=== PATIENT | male | born 1945 | race Caucasian/White ===

== ENCOUNTER 2019-02-18 12:19 | Day surgery (SDC) ==
--- NOTE | 2019-02-15 14:57 | EKG Report ---
Test Performed on : 02/15/2019 2:44:17 PM Test Reason : PAT Blood Pressure : / mmHG Vent. Rate : 072 BPM Atrial Rate : 072 BPM P-R Int : 180 ms QRS Dur : 072 ms QT Int : 388 ms P-R-T Axes : 044 026 061 degrees QTc Int : 424 ms Normal sinus rhythm. Normal ECG No previous ECGs available Confirmed by Robin WINTER, Jim ([id number]) on 02/15/2019 3:55:35 PM
[2019-02-15 15:08] LABS: BASO# 0.03 X1000 (0.0-0.2); BASO% 0.3 % (0.0-0.8); EOS# 0.11 X1000 (0.0-0.7); EOS% 1.1 % (0.0-10.0); HEMATOCRIT 40.1 % (42.0-52.0); LYMPH# 1.48 X1000 (1.2-3.4); LYMPH% 14.8 % (20.5-51.1); MCH 30.5 PG (27-31); MCHC 32.4 g/dL (33-37); MCV 94.1 FL (81-99); MONO# 1.31 X1000 (0.11-0.59); MONO% 13.1 % (1.7-9.3); MPV 9.4 FL (7.4-10.4); NEUT# 6.99 X1000 (1.4-6.5); NEUT% 69.7 % (42.2-75.2); PLT 202 X1000 (130-400); RBC 4.26 XMIL (4.7-6.1); RDW 13.7 % (11.5-14.5); WBC 10.02 X1000 (4.8-10.8)
[2019-02-15 15:33] LABS: CALCIUM 8.7 mg/dL (8.8-10.2); CREATININE 1.7 mg/dL (0.7-1.2); POTASSIUM 5.6 mmol/L (3.5-5.1)
[2019-02-18] MEDS ORDERED: LR 1,000 ML ONE (13:09)
[2019-02-18] MEDS ORDERED: KEFZOL 1 GM/D5W 2 GM/100 ML IVPB ONE (13:09)
[2019-02-18] MEDS ORDERED: XYLOCAINE-MPF 2% ONE (13:26)
[2019-02-18] MEDS ORDERED: DIPRIVAN 1% ONE (13:26)
[2019-02-18] MEDS ORDERED: SUFENTA ONE (13:28)
[2019-02-18] MEDS ORDERED: NORCO-7.5 PO ONE (13:42)
[2019-02-18] MEDS ORDERED: NORCO-7.5 ONE (13:53)
[2019-02-18] MEDS ORDERED: PEPCID ONE (14:10)
[2019-02-18] MEDS ORDERED: REGLAN ONE (14:10)
[2019-02-18] MEDS ORDERED: NORCURON ONE (17:21)
[2019-02-18] MEDS ORDERED: STERILE WATER INJ. ONE (17:21)
[2019-02-18] MEDS ORDERED: HUMULIN R ONE (18:14)
[2019-02-18] MEDS ORDERED: D50W SYRINGE ONE (18:14)
[2019-02-18] MEDS ORDERED: NEOSTIGMINE ONE (18:52)
[2019-02-18] MEDS ORDERED: ZOFRAN ONE (18:52)
[2019-02-18] MEDS ORDERED: ROBINUL ONE (18:52)
[2019-02-18] MEDS ORDERED: DECADRON ONE (18:52)
[2019-02-18] MEDS ORDERED: MORPHINE IV PRN (19:01)
[2019-02-18] MEDS: MORPHINE ONE ×2 (19:21→19:27)
[2019-02-18] MEDS: DILAUDID ONE ×2 (19:41→19:44)
--- NOTE | 2019-02-18 20:08 | OPERATIVE NOTE ---
PROCEDURE DATE: 02/18/2019 PREOPERATIVE DIAGNOSIS: Right intraarticular and subluxated/dislocated calcaneus fracture. POSTOPERATIVE DIAGNOSIS: Right intraarticular and subluxated/dislocated calcaneus fracture. PROCEDURES: 1. Right open reduction and internal fixation of calcaneus. 2. Twenty-two modifier for difficult procedure. SURGEON: Richmond Unger MD BLEACH SUPERVISOR: Brittney Muse, nurse practitioner, who was an integral part of the case, helping with all aspects of the case helping to increase our OR efficiency greatly. ANESTHESIA: General with LMA. TOURNIQUET TIME: Less than 2 hours. IMPLANTS: Scotty [employer] fully threaded 6.5 screws and 4.0 cannulated screws. DISPOSITION: To PACU, hemodynamically stable. INDICATION FOR PROCEDURE: Mr. Pinto is a 73-year-old male who fell down some stairs and fractured his calcaneus. He came into the office. I ordered a CT scan, which showed really almost a huge sagittal split in his calcaneus that was really dislocated up between the talus and the fibula so I discussed with him about operative intervention. He expressed understanding and wished to proceed. DESCRIPTION OF THE PROCEDURE: Mr. Pinto was identified in the preoperative holding area. The right foot was marked as correct surgical site. He was then wheeled to the operating room, placed supine on the operating table. All bony prominences were well padded. He was induced under general anesthesia. LMA was placed. Tourniquet was placed to the right thigh. He was then flipped to the left lateral decubitus position. Right lower extremity was then prepped with chlorhexidine, gluconate scrub and then ChloraPrep and draped in normal sterile fashion. Surgical pause was performed. We identified the correct patient, correct side, and the correct procedure. Preoperative antibiotics were given. Esmarch was used to exsanguinate the right lower extremity, and tourniquet was inflated to 300 mmHg. I started with a sinus tarsi incision. Dissection was carried down. We encountered the calcaneus pretty quickly, elevated some of the soft tissue off so we could see exactly what was going on. There was a big articular fragment right there in the wound. You could see the peroneals way out lateral. Adjacent to that articular fragment was some more articular surface, which ended up being the talus. This was the reason I put a 22 modifier. It was very difficult to get a reduction on this. We ended up using a lot of manipulation, and I was able to get a [place] elevator finally in between and depressed that lateral fragment while elevating the talus to help get some of our position back. We had to use a lamina baler operator as well to elevate some of the talus up as well, and finally we were able to get a really good reduction. There were some bone fragments missing in the posterior facet. We cleaned out that area, but there were a little bit of fragments missing there. We were able to get good compression, and then I put 2 cannulated screws in to get that compression at the articular surface. I was then able to elevate that whole articular surface up to where it needed to be and then I put two 6.5 cannulated screws fully-threaded up to hold that posterior facet up where it needed to be to restore the angle of Gissane and Bhler angle as well, and then the anterior process was fractured as well. He had a sagittal split so we were able to reduce it down and then I put two 4-0 cannulated screws there to hold that in also. After this everything actually looked really good. We cleaned out the joint really well to just make sure there were no bone fragments in that area. Overall reduction looked really good. Fluoroscopic imaging showed that we had restored Bhler angle and the angle of Gissane, and the joint looked really good. All the hardware was in good position. Figueroa heel view showed we were out of varus, and we had compressed that sagittal split. We were then able to close the wound with 0 Vicryl, 2-0 Vicryl for the subcutaneous and nylon on the skin. Adaptic, 4x4s, ABD, Sof-Rol and posterior splint were applied. Tourniquet was let down. Patient had good capillary refill return to the toes. He was then wheeled from general anesthesia, moved to his own bed and taken to PACU in stable condition. Postoperatively, he will be admitted secondary to some hyperkalemia that he was having beforehand and upon the recommendation of anesthesia. He will be admitted, and I will consult the hospitalist service to help us with that and then hopefully everything will be set for him to be discharged tomorrow. cc: Richmond Unger MD
[2019-02-18 21:20] LABS: ALB/GLOB RATIO 1.1; ALBUMIN 3.4 g/dL (3.5-5.0); CALCIUM 8.6 mg/dL (8.8-10.2); CREATININE 1.8 mg/dL (0.7-1.2); POTASSIUM 5.5 mmol/L (3.5-5.1); TOTAL BILIRUBIN 1.24 mg/dL (0.20-1.00); TOTAL PROTEIN 6.6 g/dL (6.3-8.3)
[2019-02-18 21:31] LABS: BASO# 0.01 X1000 (0.0-0.2); BASO% 0.1 % (0.0-0.8); EOS# 0.05 X1000 (0.0-0.7); EOS% 0.5 % (0.0-10.0); HEMATOCRIT 36.4 % (42.0-52.0); HEMOGLOBIN 12.1 g/dL (14.0-18.0); IMM GRAN# 0.06 X1000 (0.0-0.04); IMM GRAN% 0.6 % (0.0-0.5); LYMPH# 0.68 X1000 (1.2-3.4); LYMPH% 6.6 % (20.5-51.1); MCH 30.9 PG (27-31); MCHC 33.2 g/dL (33-37); MCV 93.1 FL (81-99); MONO# 0.69 X1000 (0.11-0.59); MONO% 6.7 % (1.7-9.3); MPV 9.3 FL (7.4-10.4); NEUT# 8.86 X1000 (1.4-6.5); NEUT% 85.5 % (42.2-75.2); PLT 212 X1000 (130-400); RBC 3.91 XMIL (4.7-6.1); RDW 13.6 % (11.5-14.5); WBC 10.35 X1000 (4.8-10.8)
[2019-02-18 21:46] LABS: INR 1.09; PROTIME 14.3 Seconds (11.0-16.0)
[2019-02-18] MEDS ORDERED: XANAX PO PRN (22:42)
[2019-02-18] MEDS ORDERED: ZOFRAN ODT PO PRN (22:52)
[2019-02-18] MEDS ORDERED: NEURONTIN PO SCH (22:52)
[2019-02-18] MEDS: OXY IR PO PRN (23:42)
[2019-02-19] MEDS ORDERED: KAYEXALATE PO ONE (00:40)
[2019-02-19] MEDS: KEFZOL 1 GM/D5W 1 GM/50 ML IVPB IV SCH ×2 (01:17→09:04)
--- NOTE | 2019-02-19 02:01 | CONSULTATION ---
DATE OF CONSULTATION: 02/18/2019 at 2130. PRIMARY CARE PROVIDER: Bill Kathleen MD, [place]. MENTAL HEALTH ASSOCIATE: Pranav Stack MD, [place], [place]. TIME OF CONSULTATION: 2130 hours. REQUESTING PHYSICIAN: Richmond Unger MD. REASON FOR CONSULTATION: Hyperkalemia. HISTORY OF PRESENT ILLNESS: Mr. Pinto is a 73-year-old male who underwent a right open reduction and internal fixation of calcaneus for a right intra-articular and subluxated/dislocated calcaneus fracture with Dr. Unger earlier today. The patient has a history of chronic kidney disease. It is difficult to determine his baseline, at this time, due to he only has 1 visit at our facility and we do not have any previous renal function lab results to compare his current status to. On 02/15/2019, his creatinine was 1.7 with a GFR of 40. He did have a potassium of 5.6 at that time. After surgery today, they did check his potassium, which was 5.9. I was given a report from the patient's nurse on the surgical floor that he did receive insulin and D50 in surgery for treatment of his potassium. Upon recheck this evening, his potassium has improved some, it is at 5.5 at this time. The patient did report that a few weeks ago his server support technician did switch him from medication of Lasix to medication of Aldactone. The patient denies having a history of heart failure, though does report that he takes Lasix for some chronic swelling in his bilateral lower extremities. He said he did previously take 40 mg of Lasix in the morning and 20 mg of Lasix at night, for a total daily dose of 60 mg, though he was having problems with low potassium and they did switch him to Aldactone, I think likely because of this. The patient denies any other recent medication adjustments or any new medications. The patient reports that a few weeks ago he was coming down some stairs and lost his footing and said that he knew he was going to fall, so instead of falling, he went ahead and jumped off of the steps and landed on his right heel, injuring it. The patient states that he did walk around for a week or so with it bothering him and having pain. He did present to his doctor's office, who referred him to Dr. Unger's office, who did a CT study and did find that he had a calcaneal fracture. He did undergo surgical repair of this earlier today, as mentioned. The patient denies any headache, dizziness, chest pain, or cough. Though has reported that for a period of a few years now he has been having some dyspnea. He states this is not of new onset and has not worsened recently. The patient is not in any respiratory distress, though upon auscultation did have some very slight crackles noted in the left lung base. He denies any fever, body aches, or chills. He denies any abdominal pain, nausea, vomiting, or diarrhea. He states his last bowel movement was 1 day ago. He denies any hematochezia or melena. He denies any dysuria, though does have BPH. The patient states he has noted recently that he has had more trouble getting his urine stream to start, but denied any decrease in his urine output. He does report some chronic swelling in his bilateral lower extremities, though at this time his legs did not appear to be edematous and the patient states that his legs look very good for him at this time. He is reporting some pain in his right foot, though other than this, is not reporting any other pain at this time. The patient does have some loss of sensation in bilateral lower extremities secondary to peripheral neuropathy, though he states this has not worsened either. He is alert and oriented to person, place, time and situation. REVIEW OF SYSTEMS: A 14-point review of systems was conducted with the patient. All were negative, except for pertinent positives mentioned above HPI. PAST MEDICAL HISTORY: 1. Sleep apnea for which she wears a CPAP machine nightly. 2. Hypertension. 3. Atrial fibrillation. 4. Mitral valve prolapse. 5. Chronic kidney disease. 6. Peripheral neuropathy. 7. BPH. 8. Anxiety. 9. Depression. 10. Gastroesophageal reflux disease. 11. Degenerative joint disease. PAST SURGICAL HISTORY: 1. Low back surgery. 2. Neck surgery. 3. Cholecystectomy. 4. Colonoscopy. 5. Right foot bunion surgery. SOCIAL HISTORY: The patient is a former smoker. He quit smoking 40 years ago, though he states that he only occasionally smoked cigars. He denies any alcohol or illicit drug use. He is . He states he is retired as well. FAMILY HISTORY: Positive for his mother having a history of lung cancer and heart disease. His father had a history of lung cancer. ALLERGIES: Patient has no known allergies. HOME MEDICATIONS: 1. Alprazolam 1 mg p.o. at bedtime. 2. Amiodarone 100 mg p.o. daily. 3. Coreg 3.125 mg p.o. b.i.d. 4. Lexapro 30 mg p.o. daily. 5. Finasteride 5 mg p.o. daily. 6. Gabapentin 400 mg p.o. 3 times a day with meals. 7. Gabapentin 400 mg p.o. at bedtime. 8. Florence 1 tablet p.o. q.6 hours p.r.n. for pain. 9. Mirtazapine 30 mg p.o. at bedtime. 10. Omeprazole 20 mg p.o. daily. 11. Spironolactone 25 mg p.o. daily. 12. Flomax 0.4 mg p.o. daily. 13. Desyrel 100 mg p.o. at bedtime. 14. Aspirin 81 mg p.o. daily. DIAGNOSTIC DATA/LABORATORY RESULTS: White blood cell count is 10,020, hemoglobin 13, hematocrit 40.1, platelet count is 202,000. PT 14.3, INR 1.09, PTT is 36. Sodium 136, potassium 5.5, chloride 99, serum bicarb 25, BUN is 26, creatinine 1.8 with a GFR of 37. Glucose 100, calcium 8.6, total bilirubin is 1.24, AST 38, ALT 25, alkaline phosphatase is 70. We are awaiting a repeat EKG performed at this time, though an EKG performed on February 15 showed normal sinus rhythm at a rate of 72 with a QTc of 424. As mentioned, we are awaiting a new repeat CT given his elevated potassium level. Chest x-ray showed no acute abnormalities. We are awaiting radiologist impression. PHYSICAL EXAMINATION: Vital Signs: Temperature 98.5 degrees, heart rate 82, respirations 16, blood pressure is 137/63, oxygen saturation is 94% on room air. General: Mr. Pinto is a pleasant 73-year-old male who is resting in the inpatient bed. He was in no acute distress. He was awake, alert, and able to answer questions appropriately. HEENT: Head is atraumatic, normocephalic. Pupils are equal, round, reactive to light, were 3 mm bilaterally and brisk. Oral mucosa is moist. Oropharynx is clear. Neck: Supple. Trachea midline. Cardiovascular: Patient has S1, S2 present. There was a very faint systolic murmur noted, though no other gallops or rubs appreciated. He does have a regular rate and rhythm. Pulmonary: Patient has symmetrical chest expansion bilaterally. Lung sounds are clear in all alfred, except he did have some slight crackles noted in the left lung base. Abdomen: Soft, does not appear to be distended. The patient does have a protuberant abdomen noted. Bowel sounds are present in all 4 quadrants, were normoactive. He was nontender upon palpation. Extremities: No cyanosis or edema noted. The patient's radial pulses are 2+ bilaterally. The dorsalis pedis pulse in his left foot was 2+. He does have capillary refill that is less than 3 seconds in all extremities. Motor and sensation is intact in all extremities as well. Distal to his surgical splint and bandage does have capillary refill that is less than 3. He does have intact sensation and is able to move his toes. Integumentary: The patient's skin is pink, warm, and dry. Neurological: Patient is alert and oriented to person, place, time, and situation. He is able move all extremities. There are no focal neurological deficits noted. ASSESSMENT AND PLAN: 1. Status post a right open reduction and internal fixation of a calcaneal fracture by Dr. Unger. We will follow along and follow Dr. Unger's recommendations for management care of his calcaneal fracture. 2. History of chronic kidney disease. As previously mentioned, we are unsure what the patient's baseline renal function is. We do not have any previous labs to compare to, though he has been having some issues with hyperkalemia for the past few days. This could be possibly secondary to his server support technician recently switching him from Lasix to Aldactone due to he was previously having problems with his potassium being low. We have held his Aldactone at this time. He did receive treatment for his potassium with insulin and D50 in the PACU and from what I understand, his potassium has improved to 5.5. We are going to go ahead and give the patient some Kayexalate orally and we will recheck his potassium the morning. We have held his Aldactone at this time. We will avoid nephrotoxic medications and renally dose medicines as necessary. 3. Hyperkalemia. We will continue treatment as mentioned above for #2. The patient has been placed on cardiac telemetry. We are awaiting a repeat EKG at this time. The patient is not reporting any associated symptoms at this time. 4. History of atrial fibrillation. We will continue the patient's Coreg and amiodarone. At this time, the patient has previously been in sinus rhythm. We are placing him on telemetry and will repeat EKG. 5. Hypertension. We will continue his regularly prescribed medicines of Coreg. 6. Peripheral neuropathy. We will continue his Neurontin. 7. Benign prostatic hypertrophy. We have continued his finasteride and Flomax. 8. Anxiety and depression. We have continued his Xanax and Lexapro. 9. Deep vein thrombosis prophylaxis is being provided with Lovenox 40 mg q.24 hours. The patient is on a surgical orthopedic floor with telemetry. He will have vital signs every 8 hours. We will do strict intake and output, incentive spirometry. We will repeat a BMP in the morning. Further orders and recommendations pending hospital course, diagnostic studies, and physician evaluation. Dictated by RANDEE Boothe for Kyler Nazario MD cc: Kyler Nazario MD MTDD
[2019-02-19] MEDS: OXY IR PO PRN ×2 (02:57→07:28)
--- NOTE | 2019-02-19 05:54 | Diag Imaging Result Doc PS360 ---
EXAM: CHEST-PORTABLE HISTORY: Crackles LLL TECHNIQUE: Single view COMPARISON: None. FINDINGS: The lungs are well expanded. The heart is not enlarged. The vessels are not distended. There are no infiltrates. No effusion identified. IMPRESSION: No pneumonia. Follow-up PA and lateral recommended. Electronically signed by Gerry Kirk 02/19/2019 5:51 AM
[2019-02-19] MEDS ORDERED: LOVENOX SUBQ SCH (06:00)
[2019-02-19 06:58] LABS: CALCIUM 8.6 mg/dL (8.8-10.2); POTASSIUM 5.3 mmol/L (3.5-5.1)
--- NOTE | 2019-02-19 06:58 | ORTHOPAEDICS PROGRESS NOTE ---
DATE: 02/19/2019 SUBJECTIVE: Mr. Pinto is lying in the bed this morning. Pain is controlled. He was admitted after his surgery yesterday for hyperkalemia. We got the hospitalist team to see him. They gave him Kayexalate and they are watching his potassium and the lab levels. OBJECTIVE: Right lower extremity exam, splint is clean, dry, and intact. He has good dorsiflexion, plantar flexion of the toes. He has numbness to the toes which is his baseline. ASSESSMENT: 1. Status post open reduction internal fixation calcaneus. 2. Hyperkalemia. PLAN: Mr. Pinto feels he is doing well from orthopedic standpoint. Will see what the medicine team says today. If they are okay with him being discharged, then we can get him out today. He is nonweightbearing right lower extremity and I will see him in 1 week in clinic. cc: Richmond Unger MD
[2019-02-19] MEDS ORDERED: PRILOSEC PO SCH (07:00)
[2019-02-19] MEDS ORDERED: FLOMAX PO SCH (09:00)
[2019-02-19] MEDS ORDERED: PROSCAR PO SCH (09:00)
[2019-02-19] MEDS ORDERED: CORDARONE PO SCH (09:00)
[2019-02-19] MEDS ORDERED: ALDACTONE PO SCH (09:00)
[2019-02-19] MEDS ORDERED: LEXAPRO PO SCH (09:00)
[2019-02-19] MEDS ORDERED: COREG PO SCH (09:00)
[2019-02-19] MEDS: NEURONTIN PO SCH ×2 (09:04→12:45)
[2019-02-19 11:16] VITALS: BP 129/67
[2019-02-19 12:14] LABS: I-STAT BE 4 mmoll (-2-3); I-STAT GLUCOSE 109 mg/dL (70-105); I-STAT HEMOGLOBIN 11.6 g/dL (11.5-17.5); I-STAT K 5.4 mmoll (3.5-4.9); I-STAT SODIUM 134 mmoll (138-146); I-STAT TCO2 30 mmoll (23-27); I-STAT pH 7.411 (7.350-7.450)
[2019-02-19] MEDS ORDERED: DESYREL PO SCH (21:00)
[2019-02-19] MEDS ORDERED: REMERON PO SCH (21:00)
--- NOTE | 2019-02-21 20:18 | DISCHARGE SUMMARY ---
ADMISSION DATE: 02/18/2019 DISCHARGE DATE: 02/19/2019 DIAGNOSES: 1. Right open reduction and fixation of calcaneus. 2. History of chronic kidney disease. 3. Hyperkalemia improved. 4. History of atrial fibrillation in a patient who is currently in sinus rhythm. 5. Hypertension. 6. Peripheral neuropathy. 7. Benign prostatic hypertrophy. 8. Anxiety and depression. DIAGNOSTICS: Chest x-ray revealed no pneumonia. HOSPITAL COURSE: Mr. Pinto underwent right open reduction internal fixation of calcaneus for right intraarticular and subluxed dislocated calcaneus fracture per Dr. Unger which he tolerated well. He has a history of chronic kidney disease with and creatinine remained stable at 1.7 to 2. He does have a history of atrial fibrillation. He remained in sinus rhythm throughout the hospitalization. We continued his home medications. Thankfully he had a uneventful hospital course and is ready for discharge. DISCHARGE PHYSICAL EXAM: Vital Signs: Blood pressure is 129/67 with heart rate of 73, respirations 18, temperature 98.3 degrees oral with room air saturations 97%. Cardiovascular: Regular rate and rhythm. S1 and S2 appreciated. Calves are nontender bilateral. Pulmonary: Breath sounds are clear with no increased work of breathing noted. Gastrointestinal: Abdomen soft, nontender, nondistended. Bowel sounds in all 4 quadrants. Neurologic: He is alert, oriented x3. DISCHARGE MEDICATIONS: 1. Xanax 1 mg p.o. at bedtime. 2. Trazodone 100 mg p.o. at bedtime. 3. Coreg 3.125 p.o. b.i.d. 4. Lexapro 30 mg p.o. daily. 5. Gabapentin 400 mg p.o. t.i.d. 6. Glidden 7.5/325 one q.6 hours p.r.n. 7. Omeprazole 20 mg p.o. daily. 8. Oxy IR 5 p.o. q.3 hours p.r.n. 9. Spironolactone 25 mg p.o. daily. 10. Flomax 0.4 p.o. daily FOLLOWUP: Dr. Unger. He needs to call the office Friday to schedule appointment to be seen next week. He has been instructed to call to be seen sooner or return to the ER for any syncope, dizziness, chest pain, palpitations, temperature greater than 101, any nausea, vomiting, diarrhea, constipation, black or bloody vomitus or stools, any hematuria, dysuria, frequency, urgency, any redness or drainage from his incision or for any questions or concerns that he may have. He is being discharged home in stable condition with family members. TIME SPENT: Greater than 30 minutes. Dictated by RANDEE Lang for Jimenez Glover MD Addendum: Patient seen and examined by myself. Agree with RANDEE note. It reflects my assessment and plan. Patient is being discharged in stable condition. Will be seen by Orthopedics as outpatient. cc: RANDEE Lang MD [facility]
== END 2019-02-19 14:24 | disposition home or self-care (01) ==
LOC: OR 12:19 → INTOOBSV 20:34 → 4N 20:34 → OR 02-19 14:24
PROVIDERS: ATTEND Orthopaedic Surgery